=== PATIENT | female | born 1965 | race Caucasian/White ===

== ENCOUNTER → 2020-10-11 | Outpatient (CLI) | payer BC ==
[~2020-10-11] MED LIST: AMOXICILLIN 50500 MG PO; IBU600 MG PO; LEVAQUIN 2250 MG/TAB PO; NORCO 325 MG-7.1 TAB PO; PRENATAL VITAMI1 TA5 PO; PYRIDIUM 100MG100 MG PO
== END ==
LOC: COL.RAD 15:39
DX: I72.8 Aneurysm of other specified arteries (principal); R06.00 Dyspnea, unspecified
CPT/HCPCS: Q9967

== ENCOUNTER → 2020-11-16 | Outpatient (CLI) | payer BC | LOC: COL.RAD 09:05 | DX: R07.89 Other chest pain (principal) | CPT/HCPCS: A9503 ==

== ENCOUNTER 2021-11-12 13:15 | Emergency (ER) | payer BC ==
[~2021-11-12] VITALS: Ht 154.9 cm; Wt 104.5 kg
[2021-11-12 13:29] VITALS: TEMP 97.7
[2021-11-12 15:27] LABS: BASO % 0.2 % (0.0-2.0); EOS % 0.3 % (0.0-4.0); GRAN % 89.6 % (42.2-75.2); HEMATOCRIT 41.2 % (37.0-47.0); HEMOGLOBIN 13.3 g/dl (12.5-16.0); LYMPH # 0.9 K/mm3 (1.2-3.4); LYMPH % 6.5 % (20.0-51.0); MEAN CELL VOLUME 91 fl (80.0-100.0); MEAN CORPUSCULAR HEMOGLOBIN 29 pg (27-31); MEAN CORPUSCULAR HGB CONC 32 g/dl (33.0-37.0); MEAN PLATELET VOLUME 8.5 fl (7.4-10.4); MONO # 0.4 K/mm3 (0.1-0.6); MONO % 2.8 % (1.7-9.3); PLATELET COUNT 289 K/mm3 (130-400); RED BLOOD COUNT 4.55 M/mm3 (4.10-5.30); REDCELL DISTRIBUTION WIDTH-CV 13.5 % (11.5-14.5)
[2021-11-12 15:39] LABS: INR 1.1 (0.8-3.0); PROTHROMBIN TIME 12.3 SECONDS (9.7-12.8)
[2021-11-12 15:48] LABS: ALBUMIN 3.8 gm/dL (3.5-5.0); BILIRUBIN,TOTAL 0.4 mg/dL (0.2-1.2); CALCIUM 9.6 mg/dL (8.4-10.2); CREATININE, serum 1.07 mg/dL (0.57-1.11); POTASSIUM 4.2 mmol/L (3.5-4.5); TOTAL PROTEIN 7.9 gm/dL (6.2-8.1)
[2021-11-12 17:34] VITALS: BP 136/86; PULSE 83
== END 2021-11-12 17:34 | disposition short-term general hospital (02) ==
LOC: COL.ER 13:15
PROVIDERS: Nurse Practitioner Primary Care
DX: S32.011A Stable burst fracture of first lumbar vertebra, initial encounter for closed fracture (principal); V80.010A Animal-rider injured by fall from or being thrown from horse in noncollision accident, initial encounter
CPT/HCPCS: J1885; J3010; Q9967